=== PATIENT | female | born 1970 | race Two or more races ===

== ENCOUNTER 2025-02-17 07:00 | Day surgery (SDC) | payer OTHER ==
[2025-02-11 10:31] VITALS: BP 133/82
[2025-02-11 11:30] LABS: URINE APPEARANCE Clear; URINE BILIRRUBIN Negative (NEGATIVE); URINE BLOOD Small; URINE COLOR Yellow; URINE GLUCOSE Negative (NEGATIVE); URINE KETONE Negative (NEGATIVE); URINE LEUKOCYTE Small; URINE NITRATE Negative; URINE PROTEIN Negative (NEGATIVE); URINE UROBILINOGEN 0.2 E.U./dl
[2025-02-11 11:34] LABS: URINE BACTERIA 2869.1 uL (0.0-1933); URINE EPITHELIAL CELLS 27.8 uL (0.0-38.8); URINE RBC 21.5 uL (0.0-20.8); URINE WBC 105.8 uL (0.0-23.2)
[2025-02-11 11:35] LABS: BASO % 0.6 % (0.1-1.2); EOS # 0.07 (0.04-0.54); EOS % 1.1 % (0.7-7.0); LYMPH # 2.37 (1.18-3.74); LYMPH % 38.5 % (19.3-53.1); MEAN PLATELET VOLUME 9.90 fl (9.4-12.4); MONO # 0.39 (0.24-0.82); MONO % 6.3 % (4.7-12.5); NEUT # 3.27 (1.56-6.13); NEUT % 53.2 % (34.0-71.1); RED CELL DISTRIBUTION WIDTH 11.9 % (11.6-14.4)
[2025-02-11 11:59] LABS: URINE CAST 1.31 uL (0.0-1.40)
[2025-02-11 12:09] LABS: INR 0.99
[2025-02-11 12:14] LABS: ALT/SGPT 27.0 U/L (12-78); AST/SGOT 16.0 U/L (15-37); BILIRUBIN TOTAL 0.51 mg/dL (0.3-1.2); BUN CREA RATIO 23.0 (7.0-25.0); CREATININE SERUM 0.57 mg/dL (0.55-1.02); GFR 110.53; GLOBULINA 3.7 G/DL (2.4-3.5); GLUCOSE FASTING 94.0 mg/dL (65-100); OSMOLALITY SERUM 283.0 MOSM/KG (275-295)
[~2025-02-17] VITALS: Ht 154.9 cm; Wt 78.0 kg
[~2025-02-17 07:00] MED LIST: B12 ACTIVE1000 MCG PO; COZAAR50 MG PO; LIPOFEN150 MG PO; LOVAZA1 GM PO; NIKKI 3 MG-0.01 EACH PO; TOPROL XL50 M1 PO
[2025-02-17] MEDS ORDERED: CEFAZOLIN SODIUM 1,000 MG VIAL ONE (08:03)
[2025-02-17] MEDS ORDERED: SUGAMMADEX SODIUM 200 MG/2 ML VIAL IV ONE (10:01)
[2025-02-17] MEDS ORDERED: hydrALAZINE HCL 20 MG VIAL ONE (10:32)
[2025-02-17] MEDS ORDERED: THROMBIN,HU/FIBRINOGEN/CALCIUM 10 ML SYRINGE TOP ONE (10:49)
[2025-02-17] MEDS ORDERED: VISTASEAL DUAL APPICATOR 1 EACH APPL TOP ONE (10:49)
== END 2025-02-17 15:50 | disposition home or self-care (01) ==
LOC: CIR.AMB 07:00
PROVIDERS: ATTEND Surgery
DX: K81.1 Chronic cholecystitis (principal)